=== PATIENT | female | born 1990 | race Caucasian/White ===

== ENCOUNTER 2017-11-08 08:04 | Day surgery (SDC) | payer MEDICAID ==
[~2017-11-08] VITALS: Ht 157.5 cm; Wt 99.8 kg
--- NOTE | ~2017-11-08 | HP ---
PATIENT: GISEL BENTON MEDICAL RECORD: [id number] ACCOUNT: [id number] LOCATION:[facility] : 88 ADMISSION DATE: 11/08/17 HISTORY AND PHYSICAL EXAMINATION HISTORY OF PRESENT ILLNESS: Gisel is 26. She has been having chronic tonsillitis problems for years. She is being admitted for tonsillectomy and adenoidectomy. PAST MEDICAL HISTORY: Reactive airway disease. PAST SURGICAL HISTORY: None. CURRENT MEDICATIONS: None. ALLERGIES: SULFA. PHYSICAL EXAMINATION: GENERAL: She is healthy-appearing, developmentally normal. FACE: Normal, symmetric, no lesions. EYES: Sclerae and conjunctivae are normal. EARS: Canals and TMs are normal. NOSE: No mass, polyps or drainage. ORAL CAVITY AND OROPHARYNX: A 3+ tonsils, large crypts. NECK: No masses, no adenopathy. CHEST: Clear. CARDIOVASCULAR: Regular rate and rhythm, no murmur. EXTREMITIES: Normal. IMPRESSION: Chronic caseous tonsillitis. PLAN: Tonsillectomy and adenoidectomy. TRANSINT:[id number] Voice Confirmation ID: [id number] DOCUMENT ID: [id number] JAMIE ROSE MD at 1458 CC: [id number] DICTATION DATE: 11/05/17 1029 CAGE SUPERVISOR: 11/05/17 1205 [facility] [place] 11/08/[address] [address]
--- NOTE | ~2017-11-08 | OP ---
PATIENT NAME: NEREIDA BENTON MEDICAL RECORD: [id number] :88 [facility] ADMISSION DATE: SURGEON: JAMIE ROSE MD DATE OF OPERATION: 11/08/2017 PREOPERATIVE DIAGNOSIS: Chronic pharyngitis. POSTOPERATIVE DIAGNOSIS: Chronic pharyngitis. PROCEDURE: Tonsillectomy and adenoidectomy. SURGEON: Jamie Rose MD ANESTHESIA: General orotracheal. BLOOD LOSS: Less than 5 cc. SPECIMENS: Right and left tonsil. COMPLICATIONS: None. DISPOSITION: Recovery stable. DESCRIPTION OF PROCEDURE: She was brought to the operating room and placed in supine position, sedated and intubated by anesthesia. The eyes were taped. The table was turned 90 degrees. A head drape was applied and she was positioned for tonsillectomy. Using a headlight, a Jaden-Alonzo mouth gag was carefully inserted and elevated on a towel on her chest. The palate was examined and palpated. She had a bifid uvula, but the palate was normal to palpation. A red rubber catheter was placed through right side of the nose into the pharynx and grasped with tonsil clamp to retract the soft palate. Using a mirror, the nasopharynx was examined. She had some adenoid tissue, but it was way up high at the [place]e, so a suction cautery on a setting of 35 was used to ablate and remove that, nothing down near [place] ridge. The cho[place] and eustachian tube orifices were normal bilaterally. The red rubber catheter was let down and removed. The right tonsil was grasped at the superior pole, deep pocketed tonsils. Spatula tip cautery on a setting of 9 was used to dissect out the tonsil along its capsule, preserving the anterior and posterior tonsillar pillar. The left side was removed in the same fashion. There was a lot of caseous material. The nose was irrigated bilaterally with saline. The pharynx was suctioned. Tonsillar fossae were agitated. Suction cautery on a setting of 20 was used to control minimal oozing. With the field clean and dry, she was awakened, extubated, and transported to recovery in good condition. No complications. TRANSINT:[id number] Voice Confirmation ID: [id number] DOCUMENT ID: [id number] OPERATIVE REPORT [id number] NEREIDA BENTON ERIC MD at 1458 CC: [id number] DICTATION DATE: 11/08/17 1213 HVAC RESIDENTIAL SERVICE TECHNICIAN: 11/08/17 1222 [facility] [place] 11/08/17 [id number] [place] [address]
[2017-11-08] MEDS ORDERED: VITAMIN D250000 UNIT PO (08:47)
[2017-11-08] MEDS ORDERED: MULTIPLE VITAMI1 TA1 PO (08:48)
[2017-11-08 08:49] LABS: HCG URINE NEGATIVE (NEGATIVE)
[2017-11-08 08:58] VITALS: BP 133/81; Ht 157.5 cm; Wt 99.8 kg
[2017-11-08 10:23] LABS: HEMATOCRIT 37.1 % (36.0-48.0); MCH 30.4 pg (26.0-34.0); MCV 86.7 fL (80.0-100.0); RBC 4.28 10x6/uL (4.00-5.40); RDW 12.4 % (11.5-14.5); WBC 7.6 10x3/uL (4.8-10.8)
== END 2017-11-08 14:02 | disposition home or self-care (01) ==
LOC: D.OPS 08:04 → D.PAN 10:45 → D.OPS 10:55
PROVIDERS: Anesthesiology; Otolaryngology
DX: J31.2 Chronic pharyngitis (principal); Z01.812 Encounter for preprocedural laboratory examination; E66.01 Morbid (severe) obesity due to excess calories; J45.909 Unspecified asthma, uncomplicated; Z68.41 Body mass index [BMI] 40.0-44.9, adult